=== PATIENT | female | born 1950 | race Caucasian/White ===

== ENCOUNTER 2024-12-25 01:09 | Day surgery (SDC) | payer MEDICARE, SELFPAY ==
--- NOTE | 2024-12-17 06:48 | P.HP_ITS ---
History of Present Illness History of Present Illness Consent: Risks, benefits, and alternatives have been discussed and questions answered. Patient agrees to proceed with procedure. Chief complaint: bladder mass Narrative: Sharmin Kuhn is a 74 year old female seen initially by our LISA for hematuria. ?Upper tract imaging was normal but there was an apparent mass in her bladder. 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 ?Discussed t his with patient and her caregiver at length. ?Will plan TURBT with gemcitabine installation. ?She is aware of the risk of recurrence and need for additional therapy. Review of Systems Review of Systems: All systems reviewed & are unremarkable except as noted in HPI and below Exam Const: General: no acute distress Resp: Effort & Inspection: normal respiratory effort GI: Inspection: non-distended GI Palp: No abdominal tenderness and No Guarding due to palpation present (GI) Auscultation: normal bowel sounds Assessment and Plan Assessment and plan (1) Cancer of overlapping sites of bladder: Code(s): C67.8 - Malignant neoplasm of overlapping sites of bladder Status: Acute Assessment and Plan: * TURBT with Gemcitabine instillation
[2024-12-17 10:03] VITALS: BMI 30.4
--- NOTE | 2024-12-17 10:17 | PC.NURSE ---
[facility] has started construction of its new state of the art ER which will open Spring 2026. With this, we anticipate parking may be a challenge for some our surgical patients and families. Parking spaces are limited but are available for all Surgical, obstetrics, and ER patients sharing this lot. If you arrive and find you are having a hard time finding a parking space, please note that we understand the challenges, please drive around the hospital and park near Hospital Entrance 1. When you enter this entrance, you can ask a volunteer to direct or take you back to the surgical waiting area to check in. We appreciate everyone?s understanding of these expected challenges while we build for your future. Report to the Outpatient Waiting Room, entrance under the green pavilion located off [address], at time __1:30pm on date _12/25/24 . Planned Procedure Time: _3:30pm .? Time changes happen often and if your time is changed the preop area will call you the afternoon before. - You and your visitor will be asked to self-screen and do not enter if you have any COVID symptoms. Please call surgeon if you need to reschedule. - A mask is optional within the hospital at this time. Patients may have clear liquids (water, carbonated beverages, clear teas, apple juice) until 3 hours prior to surgery with a maximum of 20 ounces. - No food from midnight until time of surgery and no smoking, or chewing tobacco (or any form of nicotine). No chewing gum, candy or mints. (12:30pm) Take only the following medications with a SIP of water on the morning of surgery: Levothyroxine, Tylenol if needed DO NOT STOP ANY OF YOUR OTHER PRESCRIPTION MEDICATIONS PRIOR TO SURGERY EXCEPT THE FOLLOWING Hold all vitamins and supplements for 3 days per anesthesiologist. Date of last dose is 12/21/24 Medications to discontinue per physician __ Hold Aspirin and NSAIDS for [address] Astorga Date to take last dose 12/17/24- TODAY Please no make-up, nail irish, hairspray, perfume, deodorant, or body powder the day of surgery.? No jewelry (including any body piercings) or valuables the day of surgery, leave them at home.? Please take a shower or bath the night before, or the morning of, surgery with an antibacterial soap.? Wear comfortable, loose fitting clothing.? - Jewelry must be removed prior to entering the operating room.? Rings and piercings that are not removed may be cut off. - The hospital will not accept responsibility for valuables.? - Please leave all valuables, including medications, at home the day of surgery. If you are going home after surgery, a licensed pile driver operator barge mounted must drive you home.? - NO public transportation without another adult if you receive anesthesia. - We recommend that an adult stay with you for 24 hours following discharge. - We also recommend that you do not drive, make important decision, drink alcoholic beverages, or take any drugs that were not prescribed by your health care provider for at least 24 hours after your discharge time. Follow any additional instructions given to you from your surgeon. Telephone instructions given to ___Daughter Zully Gallardo and asked if any additional questions and then verbalized understanding. Patient advised to call surgeon office or pre surgery nurse liaison [phone] if any additional questions.
[2024-12-25] VITALS (10 sets, daily range): BP systolic 124–168; BP diastolic 64–86; PULSE 68–110; RESP 12–18; TEMP 36.4–37.2; O2SAT 95–100
--- NOTE | 2024-12-25 06:05 | WPDHPUPDATE1 ---
History and Physical Update Update Date/Time: 12/25/24 06:05 History and Physical has been reviewed, including an updated exam of the patient. There are NO changes in the patient's condition. Risks, benefits, and alternatives have been discussed and questions answered. Patient agrees to proceed with procedure.
[2024-12-25] MEDS: LACTATED RINGERS 1,000 ML 30 ML IV CONT (14:00)
--- NOTE | 2024-12-25 14:02 | WPDANESEPPF ---
Anes - Initial Pre Proc Eval Procedure: Operation Date: 12/25/24 15:30 Proposed Procedures p Trans Urethral Resection Bladder Tumor with Gemcitabine Instillation - Carson Astorga MD Date/Time: 12/25/24 14:02 Surgeon: Carson Astorga MD Pre Op Diagnosis: bladder mass Patient Data Age: 74 Gender: F Height: 1.6 m Weight: 78 kg Allergies Allergy/AdvReac Type Severity Reaction Status Date / Time Penicillins Allergy Intermediate Hives Verified 12/17/24 09:48 Home Medications ?Medication ?Instructions ?Recorded ?Confirmed ?Type aspirin 81 mg chewable tablet 81 mg PO DAILY 12/17/24 12/17/24 History (Esther Chewable Low Dose Aspirin) atorvastatin 20 mg tablet 20 mg PO QPM 12/17/24 12/17/24 History donepezil 5 mg tablet 5 mg PO DAILY 12/17/24 12/17/24 History doxycycline hyclate 100 mg capsule 100 mg PO Q12H 12/17/24 12/17/24 History furosemide 20 mg tablet 20 mg PO .day 12/17/24 12/17/24 History hydrochlorothiazide 12.5 mg capsule 12.5 mg PO DAILY 12/17/24 12/17/24 History levothyroxine 150 mcg tablet 150 mcg PO DAILY 12/17/24 12/17/24 History losartan 50 mg tablet 50 mg PO .day 12/17/24 12/17/24 History potassium chloride 20 mEq 20 meq PO DAILY 12/17/24 12/17/24 History tablet,extended release silver sulfadiazine 1 % topical 1 applic topical DIRECTED 12/17/24 12/17/24 History cream vit C 250 mg-vit E 90 mg-zinc 40 1 tablet PO ONCE 12/17/24 12/17/24 History mg-copper 1 [id number] capsule ([facility] AREDS-2) Patient hx anesthesia problems: none Family hx anesthesia problems: none Results Review: All pre-operative results and documents have been reviewed as part of the pre-operative evaluation. [facility] Past Medical History Medical History (Updated 12/25/24 @ 13:57 by Nitish Gutierrez DO) Hypothyroidism PVD (peripheral vascular disease) Dementia Social History Social History Smoking status: Never smoker Second hand tobacco smoke exposure: No Alcohol intake: never Substance use: never Living arrangements: other Additional living arrangements comments: Memory Care in [place] pt resides there Spiritual care concerns: No Anes - Eval Final PreProcedure Day of Procedure 12/25/24 14:02 Patient weight: obese Heart: regular rate and rhythm Lungs: clear to auscultation Airway: Mallampati scale class III and special considerations poor dentition Neurological: alert and oriented Last oral intake: >/= 8 hours ASA classification: IV Emergent: no Anesthetic plan: proceed Anesthesia type and monitoring: general LMA and standard monitoring Results Review: All pre-operative results and documents have been reviewed as part of the pre-operative evaluation. Informed Consent: The patient's anesthetic plan and its attendant risks and benefits were discussed with the patient/family/POA. Questions were solicited and answers provided to the satisfaction of the patient/family/POA.
[2024-12-25] MEDS: ceFAZolin 2 GM in SODIUM CHLORIDE 0.9% IV 50 ML 100 ML IVPB (14:16)
[2024-12-25] MEDS: LIDOCAINE 2% GEL UROJET 10 ML PKG MUCOUS MEM (14:24)
--- NOTE | 2024-12-25 14:36 | S_PTH ---
PATIENT: Sharmin Kuhn LOC: [facility] U#:[id number] AGE/SX: 74/F ROOM: RE12/25/[address]: Carson Astorga MD : 1950 BED: DIS: 12/25/2024 SPEC #: [id number] RECD: 12/26/24 07:46 STATUS: HERMAN REQ #: [id number] MAI: 12/25/24 14:[address]: Carson Astorga DEPT: [facility] Surgical RECD BY: Huyen Valle ENTERED: 12/26/24 07:47 SP TYPE: Surgical OTHR DR: Carlos Fontenot M.D. Tissues: A - Bladder TURBT Procedures: Hematoxylin and Eosin Stain Gross and Microscopic Level 5
--- NOTE | 2024-12-25 14:46 | W.PM.PROC2 ---
Procedure Note - Detailed Date of Procedure 12/25/24 Pre-op Diagnosis Bladder tumor right posterior lateral bladder wall Post-op Diagnosis Same Procedure Performed TURBT (medium, 3 cm) Surgeon Carson Astorga MD Anesthesia General Description of Procedure The patient was brought to the operative suite where she is prepped and draped in a routine sterile fashion while in the dorsal lithotomy position. This is done after the uneventful administration of general LMA anesthesia. 2% Xylocaine jelly is introduced intraurethrally and allowed to stand for an appropriate period of time. A 24F resectoscope sheath was placed in the bladder and the bladder is circumferentially inspected carefully. 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 This area is resected in its entirety with an attempt made to include detrusor muscle for pathological evaluation of invasion. The base and periphery of this resected side is cauterized with a loop electrode. The bladder is emptied and the resectoscope was removed. The patient is taken to the recovery room having tolerated this procedure well. Drains Yes Packing Yes Pathology Yes Complications No immediate complications Condition Stable
--- NOTE | 2024-12-25 14:54 | W.PM.PROC2 ---
Procedure Note - Detailed Date of Procedure 12/25/24 Pre-op Diagnosis Bladder tumor Post-op Diagnosis Same Procedure Performed Gemcitabine installation Surgeon Carson Astorga MD Anesthesia None Description of Procedure With the patient in the supine position, a 16F Jon catheter is placed using sterile technique. Using a protective facemask, gown and double layer of gloves Gemcitabine 2gm in 100cc saline is administered through the catheter/into the bladder. The catheter is then plugged. Patient was instructed to lie supine x20min, then to roll both the left and right x20 min. each. Total dwell time will be 60 min., after which the bladder will be drained and catheter removed. Drains No Pathology None sent
[2024-12-25] MEDS: SODIUM CHLORIDE 0.9% IV 23.7 ML, GEMCITABINE HCL 1,000 MG BLADDER ×2 (14:58→14:59)
== END 2024-12-25 17:13 | disposition home or self-care (01) ==
PROVIDERS: PCP Family Medicine; Visit Provider Urology
PROC: 0TBB8ZZ Excision of Bladder, Via Natural or Artificial Opening Endoscopic (ICD-10-PCS; CPT 52235; principal; 2024-12-25 15:30)
DX: C67.2 Malignant neoplasm of lateral wall of bladder (principal); C67.4 Malignant neoplasm of posterior wall of bladder; E03.9 Hypothyroidism, unspecified; I73.9 Peripheral vascular disease, unspecified; F03.90 Unspecified dementia, unspecified severity, without behavioral disturbance, psychotic disturbance, mood disturbance, and anxiety; E66.9 Obesity, unspecified; Z68.31 Body mass index [BMI] 31.0-31.9, adult; Z79.82 Long term (current) use of aspirin
CPT/HCPCS: 52235; 51720; 88307; J0690; J2405; J2704; J7120; J9201